=== PATIENT | female | born 1960 | race Caucasian/White ===

== ENCOUNTER 2018-06-04 09:00 | Day surgery (SDC) | payer BC, OTHER ==
[2018-05-31 13:38] VITALS: BMI 27.4
--- NOTE | 2018-06-04 13:27 | HP ---
History & Physical Update - Physical Physical: No Change - Assessment Assessment: No Change
[2018-06-04] MEDS ORDERED: oxyCODONE HCL 5 MG TABLET PO PRN (14:35)
[2018-06-04] MEDS ORDERED: ONDANSETRON 4 MG/2 ML VIAL IVPUSH PRN (14:35)
[2018-06-04] MEDS ORDERED: LACTATED RINGERS SOLUTION 1,000 ML IV SCH (14:45)
[2018-06-04 16:33] VITALS: BP 110/60; PULSE 65; TEMP 97.8
--- NOTE | 2018-06-05 00:11 | OP ---
DATE OF OPERATION: 06/04/2018 PREOPERATIVE DIAGNOSIS: Postmenopausal bleeding, endometrial polyp. POSTOPERATIVE DIAGNOSIS: Postmenopausal bleeding, endometrial polyp and submucous myoma. SURGEON: Arvin Leggett M.D. PROCEDURE: Hysteroscopy, polypectomy, resection of mucoid myoma, and dilation and curettage. ANESTHESIA: General. ANESTHESIOLOGIST: Tia Hanna MD ESTIMATED BLOOD LOSS: 50 mL. OPERATION: Patient was taken to operating room, had adequate general anesthesia , examination under anesthesia revealed external genitalia to be normal. Vagina was normal, cervix was clean, no gross lesion. Uterus was slightly prominent. Adnexa, no masses were palpable. Then, with a weighted speculum in the vagina, anterior lip of the cervix was grasped with a single-toothed tenaculum. The cervix was gradually dilated with Hegar dilator and then a scope was introduced, visualization of endocervical canal appeared to be normal. Two large polyps were seen at the mid portion of the uterus, and then a 2 fibroids, 1 about 2 cm and 1 about 1 cm. The 2 cm one was in the lower uterine segment, and the 1 cm was in the fundal area of the uterus. At this time, first endometrial polyp was resected, and fibroid in the lower uterine segment was resected and suctioned, and then the finally the fibroid on the fundal area was also resected with the Symphion resectoscope, and the contents were suctioned. Then hysteroscope was withdrawn, and the endometrium was curetted. Patient tolerated procedure well, left the OR in good condition. ARVIN LEGGETT M.D. [id number]
--- NOTE | 2018-06-06 10:51 | PATH ---
Surgical Pathology Report Patient Name: CAT MACEDO [facility]. Rec. #: [id number] /Age/Gender: 1960 (Age: 57) / F Account: [id number] Location: [facility] SURGICAL Taken: 06/04/2018 Received: 06/05/2018 Reported: 06/06/2018 Physicians: Arvin Leggett M.D. Specimen(s) Received UTERINE FIBROID, POLYP, ENDOMETRIAL CURETTING Clinical History Postmenopausal bleeding Final Diagnosis UTERINE FIBROID, POLYP , ENDOMETRIAL CURETTINGS: FRAGMENTS OF ENDOMETRIAL AND ENDOCERVICAL POLYPS. SEPARATE WEAKLY PROLIFERATIVE ENDOMETRIAL TISSUE, UNREMARKABLE ENDOCERVICAL GLANDS AND SQUAMOUS EPITHELIUM PRESENT. Electronically Signed Rosa Bowers M.D. Gross Description Received in formalin labeled "fibroid, polyp, curettings," is a 2.5 x 2.5 x 0.3 cm aggregate of tejeda soft tissue fragments. The formalin is filtered and the specimen is entirely submitted in 2 cassettes. /06/05/2018 [facility]06/05/2018
== END 2018-06-04 16:30 | disposition home or self-care (01) ==
LOC: JASU-SURG 09:00
PROVIDERS: ATTEND Obstetrics & Gynecology
PROC: 0UDB7ZX Extraction of Endometrium, Via Natural or Artificial Opening, Diagnostic (ICD-10-PCS; 2018-06-04)
PROC: 0UJD8ZZ Inspection of Uterus and Cervix, Via Natural or Artificial Opening Endoscopic (ICD-10-PCS; 2018-06-04)
PROC: 0UB98ZZ Excision of Uterus, Via Natural or Artificial Opening Endoscopic (ICD-10-PCS; principal; 2018-06-04 12:00)
PROC: 0UB97ZX Excision of Uterus, Via Natural or Artificial Opening, Diagnostic (ICD-10-PCS; 2018-06-04 12:00)
DX: N95.0 Postmenopausal bleeding (principal); N84.0 Polyp of corpus uteri; D25.0 Submucous leiomyoma of uterus
CPT/HCPCS: 88305-TC; 94760